=== PATIENT | female | born 1950 | race Caucasian/White ===

== ENCOUNTER 2016-12-02 20:20 | Inpatient (IN) | payer OTHER, MEDICARE ==
[~2016-12-02] VITALS: Ht 167.6 cm; Wt 119.3 kg
[~2016-12-02 20:20] MED LIST: ASPIR 8181 MG PO; BYSTOLIC10 MG PO; CLARITIN10 MG PO; FOLIC ACID 1 MG PO; INDAPAMIDE2.5 MG PO; QUINAPRIL40 MG PO
--- NOTE | 2016-12-02 20:32 | NUR ---
PER PT CP ON AND OFF X 2 DAYS TODAY CONSTANT SINCE 1400, RADIATES TO L ARM ASSOC SOB, NO NAUSEA. PT ON PLAVIX FOR PREVIOUS LA
--- NOTE | 2016-12-02 20:40 | ED CARDIAC/CP/PALPITATIONS ---
History of Present Illness General Chief Complaint: Chest Pain Stated Complaint: "CP FOR A COUPLE OF DAYS LT ARM PAIN" Source: patient Exam Limitations: no limitations Vital Signs & Intake/Output Vital Signs & Intake/Output Vital Signs Date Time Temp Pulse Resp B/P Pulse O2 O2 Flow FiO2 Ox Delivery Rate 12/02 2048 57 18 177/90 96 12/02 2045 100 Room Air Allergies Coded Allergies: NO KNOWN ALLERGIES (10/27/12) Reconcile Medications Aspirin (Ecotrin) 81 MG TABLET.DR 1 TAB PO DAILY HEART HEALTH (Reported) Folic Acid 1 MG TABLET 1 MG PO DAILY FOLIC ACID SUPPLEMENT (Reported) Indapamide 2.5 MG TAB 1 TAB PO DAILY BP (Reported) Loratadine (Claritin) 10 MG TAB 1 TAB PO DAILY ALLERGIES (Reported) Nebivolol Hydrochloride (Bystolic) 10 MG TAB 1 TAB PO DAILY BP (Reported) Omeprazole 20 MG TABLET.DR 1 TAB PO DAILY GERD Quinapril Hydrochloride (Quinapril) 40 MG TAB 1 TAB PO DAILY BP (Reported) Rosuvastatin Calcium (Crestor) 10 MG TABLET 1 TAB PO DAILY hypercholesterolemia (Reported) Triage Note: PER PT CP ON AND OFF X 2 DAYS TODAY CONSTANT SINCE 1400, RADIATES TO L ARM ASSOC SOB, NO NAUSEA. PT ON PLAVIX FOR PREVIOUS AL Triage Nurses Notes Reviewed? yes Onset: Abrupt Duration: day(s): (2), waxing and waning Timing: multiple episodes today Quality/Severity: moderate Location: left arm Prior Chest Pain/Card Workup: heart attack Associated Symptoms: CHEST DISCOMFORT HPI: This is a 66 year old female with history of previous cardiac arrest, stents 1 in May 2014 presents to the ER chief complaint of left arm aching for the past 2 days on and off. She's also been complaining of vague chest discomfort for the past [address] Huynh in the office and is scheduled to have a nuclear stress test on Wednesday. Today she came for outpatient blood work and was having cramping in the arm as well. She states that she was worried about her symptoms progressing to her previous event and decided to come in. Patient does feel after some sort of breath. No recent other symptoms. She took her about her medications today including aspirin and Plavix prior to arrival. Patient states that the day of her previous AL she was having chest discomfort, shortness of breath and jaw pain. No jaw pain today. Shortness of breath is chronic for her at this time. Patient took her dose of plavix this morning. Past History Travel History Traveled to [place] past 21 day No Medical History Any Pertinent Medical History? see below for history Neurological: NONE EENT: NONE Cardiovascular: hypertension, myocardial infarction, CHOL Respiratory: NONE Gastrointestinal: NONE Hepatic: NONE Renal: NONE Musculoskeletal: NONE Psychiatric: NONE Endocrine: NONE Surgical History Surgical History: non-contributory Psychosocial History What is your primary language Bulgarian Tobacco Use: Quit >30 days ago Family History Hx Contributory? No Review of Systems Review of Systems Constitutional: Denies: fever. EENTM: Reports: no symptoms. Respiratory: Denies: cough, short of breath, sputum production. Cardiovascular: Reports: chest pain. Denies: palpitations, peripheral edema, syncope. GI: Reports: no symptoms. Genitourinary: Reports: no symptoms. Musculoskeletal: Reports: see HPI. Skin: Reports: no symptoms. Neurological/Psychological: Reports: no symptoms. Hematologic/Endocrine: Denies: bruising, bleeding, polyuria, polydipsia. Immunologic/Allergic: Denies: splenectomy. All Other Systems: Reviewed and Negative Physical Exam Physical Exam General Appearance: well developed/nourished, alert, awake, anxious Head: atraumatic, normal appearance Eyes: Bilateral: normal appearance, PERRL, pale conjunctivae. Ears, Nose, Throat: normal pharynx, normal ENT inspection Neck: normal inspection, supple, full range of motion Respiratory: normal breath sounds, chest non-tender, no respiratory distress Cardiovascular: regular rate/rhythm Peripheral Pulses: 2+ radial (R), 2+ radial (L) Gastrointestinal: normal bowel sounds, soft, non-tender Back: normal inspection, normal range of motion Extremities: normal inspection, normal capillary refill, normal range of motion, no edema Neurologic/Psych: no motor/sensory deficits, awake, alert, oriented x 3, normal gait Skin: intact, normal color, warm/dry Core Measures ACS in differential dx? Yes ASA ordered for poss ACS? No-other contraindication (plavix) Severe Sepsis Present: No Septic Shock Present: No Progress Differential Diagnosis: AMI, aortic dissection, costochondritis, musculoskeletal pain, myocarditis, pericarditis, pneumonia, pneumothorax, pulmonary embolism, PUD/GERD, unstable angina Plan of Care: Orders Procedure Date/time Status Heart Healthy Diet 12/03 B Active Admit to inpatient 12/02 2203 Active Vital Signs 12/02 2203 Active Code Status 12/02 2203 Active Telemetry/Land Agent 12/02 2042 Active TROPONIN LEVEL 12/02 2030 Complete PROTHROMBIN TIME 12/02 2030 Complete LIPASE 12/02 2030 Complete COMPREHENSIVE METABOLIC PANEL 12/02 2030 Complete CBC WITHOUT DIFFERENTIAL 12/02 2030 Complete AMYLASE 12/02 2030 Complete EKG 12/02 2021 Active Current Medications Sig/Bakari Start time Last Medication Dose Stop Time Status Admin Heparin Sodium 4,000 UNIT ONCE ONE 12/02 2214 UNVr (Porcine) 12/02 2215 (Heparin Bolus) Heparin Sodium 25,000 UNIT Q24H 12/02 2214 UNVr (Porcine) (Heparin) Sodium Chloride 500 ML Nitroglycerin 1 GM ONCE ONE 12/02 2199 UNVr (Nitro-Bid) 12/02 2200 Laboratory Tests 12/02/162040: Anion Gap 7, Estimated GFR > 60, BUN/Creatinine Ratio 23.3, Glucose 121 H, Calcium 9.6, Total Bilirubin 0.4, AST 26, ALT 29, Alkaline Phosphatase 77, Troponin I < 0.01, Total Protein 7.3, Albumin 4.0, Globulin 3.3, Albumin/ Globulin Ratio 1.2, Amylase 32, Lipase 106, PT 11.2, INR 1.07, CBC w Diff NO MAN DIFF REQ, RBC 4.29, MCV 87.0, MCH 29.2, RDW 14.1, MPV 8.9, Gran % 56.3, Lymphocytes % 31.4, Monocytes % 7.6, Eosinophils % 4.2, Basophils % 0.5, Absolute Granulocytes 4.3, Absolute Lymphocytes 2.4, Absolute Monocytes 0.6, Absolute Eosinophils 0.3, Absolute Basophils 0, PUBS MCHC 33.6 EKG, TELE MONITOR, LABS SENT. SL NITROGLYCERIN ORDERED. D/W DR RODRÍGUEZ. HEPARIN STARTED. [facility] [place] Diagnostic Imaging: Viewed by Me: Radiology Read. Discussed w/RAD: Radiology Read. CXR Impression: PATIENT: MOR LARSEN PRESENT AGE: 66 PATIENT ACCOUNT NO: [id number] : 50 LOCATION: [facility] ORDERING PHYSICIAN: NATALIIA VIVAS MD SERVICE DATE: 12/02/16-2046 EXAM TYPE: RAD - XRY -PORTABLE CHEST XRAY EXAMINATION: XR PORTABLE CHEST CLINICAL INFORMATION: Evaluate mediastinum. Chest pain/shortness of breath. COMPARISON: Chest x-ray . TECHNIQUE: Portable AP view of the chest was obtained. The right lateral chest is not fully included. FINDINGS: The lung powell are moderately well expanded and appear clear bilaterally. The cardiac silhouette is normal, and appears unchanged. The density at the right cardiophrenic angle consistent with an epicardial fat pad is also unchanged. The mediastinum is not widened. There are no pleural effusions or pneumothorax. The central pulmonary vasculature is normal. The hilar regions appear normal. There are no acute osseous findings. IMPRESSION: 1. There are no acute cardiopulmonary findings. 2. Stable changes compared to the prior study. DICTATED BY: KAYLIE RAMIREZ MD DATE/ TIME DICTATED:12/02/162107 MILL CONTROLLER:JIMENEZ DATE/TIME TRANSCRIBED: 12/02/162107 CONFIDENTIAL, DO NOT COPY WITHOUT APPROPRIATE AUTHORIZATION. < Electronically signed in Other Vendor System> SIGNED BY: KAYLIE RAMIREZ MD 2115 Initial ED EKG: NSR, nonspecific ST T wave chg Rhythm Strip: normal sinus rhythm Departure Departure Time of Disposition: 2203 Disposition: STILL A PATIENT Condition: Stable Clinical Impression Primary Impression: Unstable angina Referrals: LISA [facility],TIANA Wahl (PCP/Family) Departure Forms: Customer Survey General Discharge Information Prescriptions: Current Visit Scripts Omeprazole 1 TAB PO DAILY #30 TAB Admission Note Spoke With: Jose Juan RODRÍGUEZ MD Documentation of Exam: Documentation of any treatments & extenuating circumstances including Concerns Regarding Discharge (functional status, medication knowledge or non-compliance, living conditions, etc.) that warrant an admission rather than observation: [ TELE MONITOR, IV HEPARIN, ASPIRIN, NITRATES, SERIAL EKG/TROPONIN, ECHOCARDIOGRAM , EVALUATE FOR CARDIAC CATH] Critical Care Note Critical Care Note Critical Care Time: 30-74 min
--- NOTE | 2016-12-02 20:46 | NUR ---
DR VIVAS IN FOR [place]COAL
[2016-12-02 21:05] LABS: ABSOLUTE BASOPHIL COUNT 0 /CUMM (0.0-0.2); ABSOLUTE EOSINOPHIL COUNT 0.3 /CUMM (0.0-0.7); ABSOLUTE GRANULOCYTE CT 4.3 /CUMM (1.4-6.5); ABSOLUTE LYMPH COUNT 2.4 /CUMM (1.2-3.4); ABSOLUTE MONOCYTE COUNT 0.6 /CUMM (0.10-0.60); BASOPHIL % 0.5 % (0.0-2.0); EOSINOPHIL % 4.2 % (0-5); GRANULOCYTE % 56.3 % (42.2-75.2); HEMATOCRIT 37.3 % (37-47); MEAN CORPUSCULAR HGB 29.2 PG (27.0-31.0); MEAN CORPUSCULAR HGB CONC 33.6 G/DL (33.0-37.0); MEAN PLATELET VOLUME 8.9 FL (7.4-10.4); PLATELET COUNT 114 /CUMM (130-400); RBC DISTRIBUTION WIDTH 14.1 % (11.5-14.5); RED BLOOD CELL CT 4.29 /CUMM (4.20-5.40); WHITE BLOOD CELL COUNT 7.6 /CUMM (4.8-10.8)
[2016-12-02 21:11] LABS: PT 11.2 SEC (9.4-12.5)
--- NOTE | 2016-12-02 21:16 | RADIOLOGY REPORT ---
EXAMINATION: XR PORTABLE CHEST CLINICAL INFORMATION: Evaluate mediastinum. Chest pain/shortness of breath. COMPARISON: Chest x-ray 09/04/2015. TECHNIQUE: Portable AP view of the chest was obtained. The right lateral chest is not fully included. FINDINGS: The lung powell are moderately well expanded and appear clear bilaterally. The cardiac silhouette is normal, and appears unchanged. The density at the right cardiophrenic angle consistent with an epicardial fat pad is also unchanged. The mediastinum is not widened. There are no pleural effusions or pneumothorax. The central pulmonary vasculature is normal. The hilar regions appear normal. There are no acute osseous findings. IMPRESSION: 1. There are no acute cardiopulmonary findings. 2. Stable changes compared to the prior study.
--- NOTE | 2016-12-02 21:22 | NUR ---
PT MEDICATED WITH 0.4MG SL NITRO STAT PER EMAR.
--- NOTE | 2016-12-02 21:37 | NUR ---
THIS RN CHECKED ON PT TO SEE IF NITRO STAT HAD ANY RELIEF AND PT STATED "MY CP HAS SUBSIDED ALOT"
--- NOTE | 2016-12-02 22:25 | History & Physical ---
[facility] 12/02/16 2223: General Information and HPI MD Statement: I have seen and personally examined MOR BREWER and documented this H& P. The patient is a 66 year old F who presented with a patient stated chief complaint of chest pain. Source of Information: patient, family Exam Limitations: no limitations History of Present Illness: Ms. Brewer is a 66-year-old female with past medical history of arthritis, hypertension, hyperlipidemia, and acute CT in 2013 who presented to the emergency department on 12/02/2016 due to persistent pressure in her chest. Patient states that her symptoms originally began on Wednesday11/29/2016 where she felt pressure in her chest which radiated to her left arm. Patient felt that this pain did not vary with physical activity, was not related to inspiration nor was it positional. Patient did state that this pain was different to the pain she experienced in 2013 when she had an acute CT. Patient held off coming to the emergency department until she was pressured to do so by and son this evening. Patient does report increased anxiety especially when she was in the emergency department and was given some nitroglycerin. She does state that she did receive relief from these medications. The patient was scheduled to have a nuclear stress test under the care of Frandy Rodríguez MD scheduled for 12/08/2016. The patient did state that she had last seen Dr. Salmon on to 11/26/2016 at which point she did mention to him that she felt that she did have some discomfort in her chest which she described as muscular twitches. The patient denies any fever, chills, nausea, vomiting. She reports good medication compliance and denies any recent changes to her activities or activities of daily living. Patient's primary care physician is Dr. Rossi in [place]. Allergies/Medications Allergies: Coded Allergies: NO KNOWN ALLERGIES (10/27/12) Home Med list Aspirin (Ecotrin) 81 MG TABLET.DR 1 TAB PO DAILY HEART HEALTH (Reported) Folic Acid 1 MG TABLET 1 MG PO DAILY FOLIC ACID SUPPLEMENT (Reported) Indapamide 2.5 MG TAB 1 TAB PO DAILY BP (Reported) Loratadine (Claritin) 10 MG TAB 1 TAB PO DAILY ALLERGIES (Reported) Nebivolol Hydrochloride (Bystolic) 10 MG TAB 1 TAB PO DAILY BP (Reported) Omeprazole 20 MG TABLET.DR 1 TAB PO DAILY GERD Quinapril Hydrochloride (Quinapril) 40 MG TAB 1 TAB PO DAILY BP (Reported) Rosuvastatin Calcium (Crestor) 10 MG TABLET 1 TAB PO DAILY hypercholesterolemia (Reported) Compliance With Home Meds: GOOD Past History Travel History Traveled to [place] past 21 day No Medical History Neurological: NONE EENT: NONE Cardiovascular: hypertension, myocardial infarction, CHOL Respiratory: NONE Gastrointestinal: NONE Hepatic: NONE Renal: NONE Musculoskeletal: NONE Psychiatric: NONE Endocrine: NONE Surgical History Surgical History: none Past Family/Social History Psychosocial History Where do you live? Home Who Do You Live With? spouse Services at Home: None Primary Language: Portuguese Smoking Status: Former Smoker (20 PPD) ETOH Use: alcoholic Illicit Drug Use: denies illicit drug use Functional Ability ADLs Independent: dressing, eating, toileting, bathing. Ambulation: independent IADLs Independent: shopping, housework, finances, food prep, telephone, transportation , medication admin. Review of Systems Review of Systems Constitutional: Denies: chills, fever, weakness. Cardiovascular: Reports: chest pain. Denies: orthopena, palpitations, syncope. Respiratory: Reports: short of breath. Denies: cough, hemoptysis, orthopnea. GI: Reports: constipation. Denies: abdominal pain, bloating, diarrhea. Genitourinary: Denies: discharge, dysuria, frequency. Musculoskeletal: Reports: joint pain, joint swelling. Denies: back pain, gout. Skin: Denies: cysts, change in skin color, change in hair/nails, dryness. Neurological/Psychological: Reports: anxiety. Exam & Diagnostic Data Last 24 Hrs of Vital Signs/I&O Vital Signs Date Time Temp Pulse Resp B/P Pulse O2 O2 Flow FiO2 Ox Delivery Rate 12/02 2048 57 18 177/90 96 12/02 2045 100 Room Air Physical Exam General Appearance Alert, Oriented X3, Cooperative Lymphatic Cervical nl Cardiovascular Regular Rate, Normal S1, Normal S2, No Murmurs Lungs Clear to Auscultation Abdomen Normal Bowel Sounds, Soft, No Tenderness Neurological Normal Gait, Normal Speech, Strength at 5/5 X4 Ext Extremities No Clubbing, No Cyanosis, Edema 3+, Bilaterral. Vascular Normal Pulses Last 24 Hrs of Labs/Trace: Laboratory Tests 12/03/16 0500: APTT 73 H, CBC w Diff NO MAN DIFF REQ, RBC 4.08 L, MCV 87.5, MCH 29.4, RDW 13.9, MPV 9.1, Gran % 55.8, Lymphocytes % 32.7, Monocytes % 6.8, Eosinophils % 4.2, Basophils % 0.5, Absolute Granulocytes 4.1, Absolute Lymphocytes 2.4, Absolute Monocytes 0.5, Absolute Eosinophils 0.3, Absolute Basophils 0, PUBS MCHC 33.6 12/03/16 0150: Troponin I < 0.01 12/02/162040: APTT Cancelled 12/02/162040: Anion Gap 7, Estimated GFR > 60, BUN/Creatinine Ratio 23.3, Glucose 121 H, Calcium 9.6, Total Bilirubin 0.4, AST 26, ALT 29, Alkaline Phosphatase 77, Troponin I < 0.01, Total Protein 7.3, Albumin 4.0, Globulin 3.3, Albumin/ Globulin Ratio 1.2, Amylase 32, Lipase 106, PT 11.2, INR 1.07, APTT 30, CBC w Diff NO MAN DIFF REQ, RBC 4.29, MCV 87.0, MCH 29.2, RDW 14.1, MPV 8.9, Gran % 56.3, Lymphocytes % 31.4, Monocytes % 7.6, Eosinophils % 4.2, Basophils % 0.5, Absolute Granulocytes 4.3, Absolute Lymphocytes 2.4, Absolute Monocytes 0.6, Absolute Eosinophils 0.3, Absolute Basophils 0, PUBS MCHC 33.6 Diagnostic Data EKG Results Sinus Rhythm Rate 58 Qtc 425 CXR Results SERVICE DATE: 12/02/16-2046 EXAM TYPE: RAD - XRY-PORTABLE CHEST XRAY EXAMINATION: XR PORTABLE CHEST CLINICAL INFORMATION: Evaluate mediastinum. Chest pain/shortness of breath. COMPARISON: Chest x-ray 09/04/2015. TECHNIQUE: Portable AP view of the chest was obtained. The right lateral chest is not fully included. FINDINGS: The lung powell are moderately well expanded and appear clear bilaterally. The cardiac silhouette is normal, and appears unchanged. The density at the right cardiophrenic angle consistent with an epicardial fat pad is also unchanged. The mediastinum is not widened. There are no pleural effusions or pneumothorax. The central pulmonary vasculature is normal. The hilar regions appear normal. There are no acute osseous findings. IMPRESSION: 1. There are no acute cardiopulmonary findings. 2. Stable changes compared to the prior study. DICTATED BY: KAYLIE RAMIREZ MD Assessment/Plan Assessment: This is a 66-year-old female with past medical history of coronary artery disease, that is post CT and stent placements with many cardiac risk factors who presented to the emergency department with chest pain and chest discomfort. #Atypical Chest pain Admit the patient to telemetry for continuous monitoring. Serial EKGs and troponins. Initial troponin was 0.01 Consider cardiology consult in a.m. Continue Bystolic 5 mg Continue indapamide 2.5 mg. Aspirin 81 mg. #Headache Patient did report mild headache. Patient does have questionable history of tension headaches. Tylenol by mouth 650 MG once. Continue to monitor if symptoms worsen consider endocrinology consult. #History of hypertension Continue lisinopril 40 mg. Blood pressure 107/57. #History of arthritis Patient does not report that she takes anything for her arthritis however ensure Continued pain relief. Tylenol for pain relief. #History of hyperlipidemia Continue statin #Diet Heart healthy #DVT prophylaxis Heparin drip. #Code Full code As Ranked By This Provider Problem List: 1. Unstable angina 2. Ventricular tachycardia Core Measures/Miscellaneous Acute Coronary Syndrome ACS Diagnosis: No Cerebrovascular Accident CVA/TIA Diagnosis: No Congestive Heart Failure CHF Diagnosis: No Venous Thromboembolism VTE Risk Factors: Acute medical illness, Age > 40 VTE Prophylaxis Ordered Inpt: [facility] prophylaxis d/t: No contraindications No VTE Pharm Prophylaxis d/t: No contraindications VTE Diagnosis: No VTE Type: NONE VTE Confirmed by (Test): NONE Severe Sepsis Severe Sepsis Present: No Septic Shock Septic Shock Present: No Miscellaneous Documentation Attending Case Discussed With: Jose Juan RODRÍGUEZ MD Primary Care Physician: TIANA ROSSI MD Patient sees these Specialists NA Level of Patient Care: Telemetry [place] 12/02/16 2316: Resident Review Statement Resident Statement: examined this patient, discussed with consultant intern, agreed with consultant intern, discussed with family, reviewed EMR data (avail), discussed with nursing , discussed with case mgmt, reviewed images, amended to note Other Findings: 66 year-old obese white woman presented at the ED complaining of chest pain. She had a past medical history significant for CT and cardiac arrest in 2013, severe coronary artery disease status post stent placement in 2013, hypertension , hyperlipidemia. Patient reports, since Wednesday she started having midsternal and left-sided crushing, constant chest pain. Pain isremained steady, 4-5 out of 10 in pain scale, radiates to upper left arm. Pain is not positional, nor reproducible. Not related to physical activity, deep inspiration, eating and drinking, moving care arms. Denies any trouble with acid reflux, no recent unusual physical activity, URI symptoms. She took Advil that reduce her pain, and reports some relief in her pain after receiving nitrates in the emergency room. Review of system: Patient reports constant retrosternal chest heaviness. Physical exam: S1-S2 no murmur, lungs are clear, 2+ bilateral pitting pedal edema. Obese, severe osteoarthritis and not physically active, former smoker half a pack for 40 years quit in 2013. Family history : Strong family history for heart attack in her father and paternal uncles . Mother secondary to cardiac related issues at the age of 88.Lives at home with his . Pertinent findings First set of troponin is less than 0.01; CBC: wnl, sodium 141, potassium 3.4 bicarbonate 32 Normal sinus rhythm, 55 bpm, no axis deviation, no new bundle branch block, ?? Prolongation of TN (first degree AV block) Assessment 66-year-old woman with significant past medical history of coronary artery diseases status post CT and stent placements, and high index of cardiac risk factors (obesity, hypercholesterolemia, former smoker, and a strong family history) was admitted for chest pain and R/O acs. * Bystolic 5 mg * Trending troponin and EKG: negative * ASA 81 mg po daily * IV heparin drip ACS protocol * NTG patch 0.4 mg PRN- if had chest pain and PB tolerates * hold off plavix due to possibility of doing Cardiac cath HTN * Indapamide 2.5 mg po daily * lisinopril 40 mg Po daily BIRD SALMON MD 12/03/16 1103: Attending MD Review Statement Attending Statement Attending MD Statement: examined this patient, discuss w/resident/PA/SILK SCREEN PROCESSOR, agreed w/resident/PA/SILK SCREEN PROCESSOR, discussed with family, reviewed EMR data (avail), discussed with nursing, reviewed images, amended to note Attending Assessment/Plan: Agree with housestaff note above. The patient is a 66-year-old female with history of CAD, hypertension, and hyperlipidemia who presents with complaint of chest discomfort. She was recently evaluated in the office for atypical chest pain, and a nuclear stress test was scheduled for December 08 in light of her history. She now presents with intermittent chest burning over the past few days. She notes that the burning is exacerbated by drinking carbonated beverages or eating a heavy meal. She is currently pain-free. The longest episode of discomfort was 10 minutes. The initial 2 troponins values are negative, and the third troponin is pending Review of systems: No fever. No chills. No rash. No tremor. No melena. All other systems were reviewed, and were noted to be negative. Gen: The patient is in no acute distress HEENT: Normal nose, ears, and oropharynx. Pupils equal bilaterally. Conjunctiva normal. Neck: Supple with no JVD, no masses, and no thyromegaly Lungs: Clear to auscultation with normal respiratory effort Heart: RRR, S1, S2, no murmurs. No peripheral edema, 2+ pulses in the lower extremities bilaterally Abdomen: Soft, nontender, no masses. No hepatomegaly. No splenomegaly Extremities: No clubbing or cyanosis. Normal muscle strength in the upper and lower extremities. Skin: Normal skin turgor with no skin ulcers or lesions noted. Neuro: Cranial nerves intact. Sensation intact Psych: Alert and oriented 3 with appropriate affect chest x-ray: 1. There are no acute cardiopulmonary findings. 2. Stable changes compared to the prior study. EKG tracing is independently reviewed, and reveals normal sinus rhythm at 55 with borderline T wave abnormality Assessment: 1. CAD 2. Hypertension 3. Hyperlipidemia 4. Chest pain, rule out acute coronary syndrome. Possible GERD. Plan: * Check third troponin to rule out myocardial infarction. * If third troponin is negative, the patient will be discharged home and will proceed with outpatient nuclear stress test which is already scheduled. * Continue cardiac medications. * Start omeprazole 20 mg daily for treatment of possible GERD * Follow up in the office in one week. * All return to the emergency room with further chest discomfort.
--- NOTE | 2016-12-02 23:10 | NUR ---
HOUSE STAFF IN FOR EVAL. THIS RN PLACED 1GM NITRO BID ON LEFT CHEST, HEPARIN BOLUS OF 4000 UNITS ADMINISTERED IN LEFT ABD, HEPARIN DRIP STARTED BY THIS RN RATE 20 ML/HR, PT MAXED
[2016-12-02 23:22] LABS: PTT 30 SEC (25-37)
--- NOTE | 2016-12-03 00:06 | NUR ---
PT MOVED TO HOSPITAL BED FOR COMFORT.
--- NOTE | 2016-12-03 00:09 | NUR ---
YARELY (SPOUSE) LEAVING AT THIS TIME, CONTACT INFO: H- C- (PRIMARY NUMBER)
--- NOTE | 2016-12-03 01:53 | NUR ---
REPEAT EKG AND TROPONIN COMPLETED BY THIS RN AND FABIANA SARGENT.
--- NOTE | 2016-12-03 01:58 | NUR ---
RESIDENT LUCERO PAGED ABOUT EKG COMPLETION AND EKG IS IN PAPERCHART TO BE SIGNED OFF AND SEEN
--- NOTE | 2016-12-03 05:24 | NUR ---
PT MEDICATED WITH 650MG TYLENOL FOR RIGHT SIDED TENSION NUÑEZ. THIS RN PAGE RESIDENT LUCERO WHO STATED THAT IN 1 HR HE WILL CHECK ON PT TO SEE IF TYLENOL RELIEVED THE NUÑEZ.
[2016-12-03 05:25] LABS: PTT 73 SEC (25-37)
[2016-12-03 05:33] LABS: ABSOLUTE BASOPHIL COUNT 0 /CUMM (0.0-0.2); ABSOLUTE EOSINOPHIL COUNT 0.3 /CUMM (0.0-0.7); ABSOLUTE GRANULOCYTE CT 4.1 /CUMM (1.4-6.5); ABSOLUTE LYMPH COUNT 2.4 /CUMM (1.2-3.4); ABSOLUTE MONOCYTE COUNT 0.5 /CUMM (0.10-0.60); BASOPHIL % 0.5 % (0.0-2.0); EOSINOPHIL % 4.2 % (0-5); GRANULOCYTE % 55.8 % (42.2-75.2); HEMATOCRIT 35.7 % (37-47); MEAN CORPUSCULAR HGB 29.4 PG (27.0-31.0); MEAN CORPUSCULAR HGB CONC 33.6 G/DL (33.0-37.0); MEAN CORPUSCULAR VOLUME 87.5 FL (81.0-99.0); MEAN PLATELET VOLUME 9.1 FL (7.4-10.4); PLATELET COUNT 101 /CUMM (130-400); RBC DISTRIBUTION WIDTH 13.9 % (11.5-14.5); RED BLOOD CELL CT 4.08 /CUMM (4.20-5.40); WHITE BLOOD CELL COUNT 7.3 /CUMM (4.8-10.8)
--- NOTE | 2016-12-03 06:31 | NUR ---
TESSY INITIATED AND WILLIAM.
--- NOTE | 2016-12-03 07:30 | NUR ---
ASSUMED CARE, EATING BREAKFAST, DENIES CHEST PAIN. HEPARIN DRIP INFUSING AT 20 ML/HR.
--- NOTE | 2016-12-03 09:12 | NUR ---
TUBULAR SPLITTING MACHINE TENDER DR. TRIXIE WAYNE NO. [id number]. RESIDENT: DR. MARCELA WAYNE NO. [id number].
--- NOTE | 2016-12-03 09:29 | NUR ---
TROPONIN DRAWN AND SENT. AM MEDS GIVEN.
[2016-12-03 09:30] VITALS: BP 133/67
--- NOTE | 2016-12-03 09:34 | NUR ---
SECOND TROP SENT AT THIS TIME.
--- NOTE | 2016-12-03 10:42 | NUR ---
pt has bed assignment 184. rn notified.
[2016-12-03] MEDS ORDERED: CRESTOR10 M1 PO (11:17)
[2016-12-03] MEDS ORDERED: OMEPRAZOLE20 M3 PO (11:18)
--- NOTE | 2016-12-03 11:18 | Patient Discharge Instructions ---
Discharge Instructions General Discharge Information You were seen/treated for: GERD Special Instructions: please follow up with your corporate trainer for scheduled nuclear scan appointment on Dec. Diet Continue normal diet: No (heart healthy diet) Activity Full Activity/No Limits: No (as tolerated) Acute Coronary Syndrome Inclusion Criteria At DC or during hospital stay patient has or had the following: ACS DIAGNOSIS No Discharge Core Measures Meds if any: Prescribed or Continued at Discharge Meds if any: NOT Prescribed or Continued at Discharge Congestive Heart Failure Inclusion Criteria At DC or during hospital stay patient has or had the following: CHF DIAGNOSIS No Discharge Core Measures Meds if any: Prescribed or Continued at Discharge Meds if any: NOT Prescribed or Continued at Discharge Cerebrovascular accident Inclusion Criteria At DC or during hospital stay patient has or had the following: CVA/TIA Diagnosis No Discharge Core Measures Meds if any: Prescribed or Continued at Discharge Meds if any: NOT Prescribed or Continued at Discharge Venous thromboembolism Inclusion Criteria VTE Diagnosis No VTE Type NONE VTE Confirmed by (Test) NONE Discharge Core Measures - Per Current guidelines, there needs to be overlap - treatment for the first 5 days of Warfarin therapy. - If discharged on Warfarin prior to 5 days of - overlap therapy, the patient will need to be - assessed for post discharge needs including - *Post discharge parental anticoagulation - *Warfarin and/or parental anticoagulation education - *Follow up date to check INR post discharge At least 5 days overlap therapy as Inpatient No Meds if any: Prescribed or Continued at Discharge Warfarin No Note: Overlap Therapy is Warfarin and Anticoagulant Meds if any: NOT Prescribed or Continued at Discharge
--- NOTE | 2016-12-03 11:21 | PN- Housestaff ---
Subjective Follow-up For: Chest pain Complaints: no complaints Tele-Events Since Last Visit: Overnight events Subjective: Patient is seen and examined at the bedside. She was not complaining of any symptoms. Review of Systems Constitutional: Denies: no symptoms. Objective Last 24 Hrs of Vital Signs/I&O Temperature 90 8.7, pulse 57, respiratory rate 18, blood pressure 177/90, SPO2 96% on room air Physical Exam General Appearance: Alert, Oriented X3, Cooperative, No Acute Distress Skin: No Rashes, No Breakdown HEENT: Atraumatic, PERRLA, EOMI Neck: Supple, No JVD Cardiovascular: Regular Rate, Normal S1, Normal S2 Lungs: Clear to Auscultation, Normal Air Movement Abdomen: Normal Bowel Sounds, Soft, No Tenderness Neurological: Normal Gait, Normal Speech Extremities: No Clubbing, No Cyanosis, No Edema Vascular: Normal Pulses, Pulses Symmetrical Assessment/Plan Assessment: Ms. Brewer is a 66-year-old female with past medical history of arthritis, hypertension, hyperlipidemia, and acute CO in 2013 who presented to the emergency department on 12/02/2016 due to persistent pressure in her chest. Patient states that her symptoms originally began on Wednesday11/29/2016 where she felt pressure in her chest which radiated to her left arm. Patient felt that this pain did not vary with physical activity, was not related to inspiration nor was it positional. Patient did state that this pain was different to the pain she experienced in 2013 when she had an acute CO. Patient held off coming to the emergency department until she was pressured to do so by and son this evening Vital signs stable Problem list - GERD Headache Hypertension Hyperlipidemia Arthritis Plan- Discharge today Continue all home medication Follow-up with Dr. Huynh on Wednesday for nuclear stress testing Continue her diabetic diet Problem List: 1. GERD (gastroesophageal reflux disease) 2. Unstable angina Pain Ratin Pain Location: Chest Pain Goal: Remain pain free Pain Plan: [id number] Tomorrow's Labs & Rationales: Nothing DVT/Prophylaxis: mechanical, pharmacological
--- NOTE | 2016-12-03 11:43 | Discharge Summary ---
See Addendum Visit Information Visit Dates Admission Date: 12/02/16 Discharge Date: 12/03/16 Hospital Course Course Attending Physician: Jose Juan RODRÍGUEZ MD Primary Care Physician: TIANA GONZALEZ MD Hospital Course: 66 year-old obese white woman with past medical history significant for [place] and cardiac arrest in 2013, severe coronary artery disease status post stent placement in 2013, hypertension, hyperlipidemia presented at the ED complaining of chest pain.She was recently evaluated for atypical chest pain, and a nuclear stress test was scheduled for December 08. Vital signs at the time of admission-pulse 57, respiratory rate 18, blood pressure 177/90, SPO2 96% on room air Atypical chest pain probably GERD we will need outpatient evaluation - We admitted the patient in the telemetry and serial troponins were done which come back negative. EKG shows no any new changes, chest x-ray showed no any acute abnormality. All blood work up was normal. So it was decided by the mortgage servicing specialist that patient can be discharged home and will proceed with outpatient nuclear stress test, which is already sheduled on December 08. We also started patient on Omeprazole 20 Milligrams for GERD Symptoms. Allergies: Coded Allergies: NO KNOWN ALLERGIES (10/27/12) Disposition Summary Disposition Principal Diagnosis: Atypical chest pain under evaluation, possible GERD Additional Diagnosis: Hypertension Hyperlipidemia Coronary artery disease Morbid Obesity Arthritis Discharge Disposition: home or self care Discharge Instructions General Discharge Information Code Status: Full Code Patient's Diet: Heart healthy and weight loss diet Patient's Activity: as tolerated Follow-Up Instructions/Appts: Please follow-up with your mortgage servicing specialist within a week of discharge She is she due for nuclear stress test on December 08 Medications at Discharge Discharge Medications: Continue taking these medications: Quinapril Hydrochloride (Quinapril) 40 MG TAB 1 Tablet ORAL DAILY Qty = 90 Indapamide (Indapamide) 2.5 MG TAB 1 Tablet ORAL DAILY Qty = 90 Nebivolol Hydrochloride (Bystolic) 10 MG TAB 1 Tablet ORAL DAILY Qty = 90 Folic Acid (Folic Acid) 1 MG TABLET 1 Milligram ORAL DAILY Aspirin (Ecotrin) 81 MG TABLET. 1 Tablet ORAL DAILY Loratadine (Claritin) 10 MG TAB 1 Tablet ORAL DAILY Rosuvastatin Calcium (Crestor) 10 MG TABLET 1 Tablet ORAL DAILY Qty = 90 Start taking the following new medications: Omeprazole (Omeprazole) 20 MG TABLET. 1 Tablet ORAL DAILY Qty = 30 No Refills Copies To: Jose Juan RODRÍGUEZ MD; VIKY WILLOUGHBY,BIRD Attending MD Review Statement Documenting Attending: Jose Juan RODRÍGUEZ MD
== END 2016-12-03 12:26 | DRG 392 ==
LOC: ENRESERVDT → ENRESERVTM → ENRESERV → ERH 20:20 → ERHI 22:04 → EDBEDREQ 22:31 → ERHI 12-03 12:24
PROVIDERS: Emergency Medicine; Student in an Organized Health Care Education/Training Program; ADMIT Specialist
DX: K21.9 Gastro-esophageal reflux disease without esophagitis (principal); I11.9 Hypertensive heart disease without heart failure; Z68.41 Body mass index [BMI] 40.0-44.9, adult; I25.10 Atherosclerotic heart disease of native coronary artery without angina pectoris; Z95.5 Presence of coronary angioplasty implant and graft; Z87.891 Personal history of nicotine dependence; E78.5 Hyperlipidemia, unspecified; E66.01 Morbid (severe) obesity due to excess calories; M19.90 Unspecified osteoarthritis, unspecified site; I25.2 Old myocardial infarction
CPT/HCPCS: ERO; 36415; 93005; 93010; 96374; 99291; J1644; J3490